=== PATIENT | male | born 2000 | race Asian ===

== ENCOUNTER 2024-10-16 08:53 | Emergency (ER) | payer SELFPAY | END 2024-10-16 10:50 | disposition home or self-care (01) | LOC: MW.ED 08:53 | DX: J18.9 Pneumonia, unspecified organism (principal); Z88.1 Allergy status to other antibiotic agents; Z79.899 Other long term (current) drug therapy | CPT/HCPCS: 71046; 71046-26; 87428-QW; 87651; 99283; 99284 ==